=== PATIENT | female | born 1960 | race Caucasian/White ===

== ENCOUNTER 2019-02-17 11:38 | Emergency (ER) | payer MEDICARE, OTHER ==
[~2019-02-17] VITALS: Ht 157.5 cm; Wt 61.2 kg
[2019-02-17] MEDS ORDERED: AMITRIPTYLINE H25 MG PO (12:00)
[2019-02-17] MEDS ORDERED: MELOXICAM7.5 MG PO (12:01)
[2019-02-17] MEDS ORDERED: ULTRAM50 MG PO (12:01)
[2019-02-17] MEDS ORDERED: PROPRANOLOL HCL10 MG PO (12:02)
[2019-02-17] MEDS ORDERED: ALPRAZOLAM1 MG PO (12:02)
[2019-02-17] MEDS ORDERED: QUETIAPINE FUMA50 MG PO (12:02)
[2019-02-17] MEDS ORDERED: BACTRIM DS TAB1 EACH PO (12:03)
[2019-02-17] MEDS ORDERED: LORAZEPAM1 MG PO (13:00)
== END 2019-02-17 13:12 | disposition home or self-care (01) ==
LOC: ED 11:38
DX: F19.939 Other psychoactive substance use, unspecified with withdrawal, unspecified (principal); F41.9 Anxiety disorder, unspecified; Z88.5 Allergy status to narcotic agent; Z88.8 Allergy status to other drugs, medicaments and biological substances; Z79.899 Other long term (current) drug therapy
CPT/HCPCS: 99283